=== PATIENT | female | born 1950 | race Caucasian/White ===

== ENCOUNTER 2016-09-02 05:36 | Day surgery (SDC) | payer MEDICARE, OTHER ==
[~2016-09-02] VITALS: Ht 152.4 cm; Wt 90.9 kg
[~2016-09-02 05:36] MED LIST: FentaNYL CITRATE-PF 100 MCG/2 ML VIAL IVP ONE; INSLAN SQ; LOSA50TA37 PO; METF500T4 PO; MIDAZOLAM HCL 2 MG/2 ML VIAL IVP ONE; SIMV-261 PO; VITA-328 PO
[2016-09-02] MEDS ORDERED: DICLOFENAC SODIUM 0.1% 2.5 ML OPHTHALMIC SOLUTION ONE (05:45)
[2016-09-02] MEDS ORDERED: TETRACAINE HCL 0.5% 2 ML OPHTHALMIC SOLUTION ONE (05:46)
[2016-09-02] MEDS ORDERED: CYCLOPENTOLATE HCL 2% 2 ML OPHTHALMIC SOLUTION ONE (05:47)
[2016-09-02] MEDS ORDERED: RINGERS SOLUTION,LACTATED 500 ML IV ONE ×2 (05:47→06:00)
[2016-09-02] MEDS ORDERED: PHENYLEPHRINE HCL 2.5% 2 ML OPHTHALMIC SOLUTION ONE (05:47)
[2016-09-02] MEDS ORDERED: GATIFLOXACIN 0.5% 2.5 ML OPHTHALMIC SOLUTION ONE (05:47)
[2016-09-02] MEDS: DICLOFENAC SODIUM 0.1% 2.5 ML OPHTHALMIC SOLUTION OD SCH ×3 (06:32→06:53)
[2016-09-02] MEDS: CYCLOPENTOLATE HCL 2% 2 ML OPHTHALMIC SOLUTION OD SCH ×3 (06:32→06:42)
[2016-09-02] MEDS: PHENYLEPHRINE HCL 2.5% 2 ML OPHTHALMIC SOLUTION OD SCH ×3 (06:32→06:42)
[2016-09-02] MEDS: GATIFLOXACIN 0.5% 2.5 ML OPHTHALMIC SOLUTION OD SCH ×3 (06:33→06:53)
[2016-09-02 06:36] LABS: GLUCOSE,POINT OF CARE 165 MG/DL (70-110)
[2016-09-02] MEDS ORDERED: ACETAMINOPHEN 325 MG TABLET PO PRN (07:00)
[2016-09-02] MEDS ORDERED: AcetaZOLAMIDE 250 MG TABLET PO ONE (07:00)
[2016-09-02] MEDS ORDERED: TETRACAINE HCL 0.5% 2 ML OPHTHALMIC SOLUTION OD ONE (07:00)
[2016-09-02] MEDS ORDERED: AcetaZOLAMIDE 250 MG TABLET ONE (08:26)
[2016-09-02] MEDS ORDERED: HYALURONATE SODIUM 12 MG/ML 0.8 ML SYRINGE IO ONE (10:00)
[2016-09-02] MEDS ORDERED: TETRACAINE HCL VISCOUS 0.5% 0.6 ML OPHTHALMIC SOLUTION OU ONE (10:00)
[2016-09-02] MEDS ORDERED: TETRACAINE HCL 0.5% 2 ML OPHTHALMIC SOLUTION OU ONE (10:00)
[2016-09-02] MEDS ORDERED: POVIDONE-IODINE 10% 15 ML SOLUTION UD TP ONE (10:00)
[2016-09-02] MEDS ORDERED: MOXIFLOXACIN HCL 0.5% 3 ML OPHTHALMIC SOLUTION OU ONE (10:00)
[2016-09-02] MEDS ORDERED: LIDOCAINE HCL/PF 1% 2 ML VIAL IM ONE (10:00)
[2016-09-02] MEDS ORDERED: EPINEPHrine 1:1,000 [1 MG/ML] AMP IVP ONE (10:00)
[2016-09-02] MEDS ORDERED: BRIMONIDINE TARTRATE 0.15% 5 ML OPHTHALMIC SOLUTION OU ONE (10:00)
[2016-09-02] MEDS ORDERED: HYALURONATE SOD/CHONDROITIN SOD 0.5 ML VIAL IO ONE (10:00)
== END 2016-09-03 08:40 | disposition home or self-care (01) ==
LOC: SURGERY 05:36
PROVIDERS: ATTEND Ophthalmology
DX: E10.36 Type 1 diabetes mellitus with diabetic cataract (principal); H26.9 Unspecified cataract; I10 Essential (primary) hypertension; Z98.890 Other specified postprocedural states; Z79.4 Long term (current) use of insulin
CPT/HCPCS: 66984; 82962; 93005; C1780; J2250; J3010; J7120; J0171; J3490